=== PATIENT | female | born 1970 | race Caucasian/White ===

== ENCOUNTER → 2019-02-20 | Outpatient (CLI) | payer BC ==
--- NOTE | 2019-02-21 08:57 | US ---
EXAMINATION TYPE: US thyroid st tissue head/neck DATE OF EXAM: 02/20/2019 COMPARISON: NONE CLINICAL HISTORY: R79.89 abnormal findings of blood chemistry. Abnormal thyroid labs GLAND SIZE: Right Lobe: 5.5 x 2.1 x 2.3 cm Overall Parenchyma: heterogenous Left Lobe: 5.2 x 1.8 x 2.2 cm Overall Parenchyma: heterogeneous Isthmus Thickness: 0.3 cm NODULES RIGHT: # of nodules measured on right: 0 - multiple subcentimeter nodules seen LEFT: # of nodules measured on left: 0 - multiple subcentimeter nodules seen ISTHMUS: # of nodules measured in the isthmus: 0 Bilateral neck scanned, lymph nodes noted bilaterally, within normal limits of size. IMPRESSION: Heterogenous and mildly enlarged thyroid gland without discrete measurable focal nodule. Bilateral nonenlarged lymph nodes are incidentally seen.
== END ==
LOC: RADUSWWP 16:07
PROVIDERS: ATTEND Family Medicine
DX: E04.9 Nontoxic goiter, unspecified (principal); R79.89 Other specified abnormal findings of blood chemistry
CPT/HCPCS: 76536

== ENCOUNTER → 2020-01-01 | Outpatient (CLI) | payer BC ==
--- NOTE | 2020-01-02 06:58 | US ---
EXAMINATION TYPE: US thyroid st tissue head/neck DATE OF EXAM: 01/01/2020 COMPARISON: US 2019 CLINICAL HISTORY: E04.9 thyroid goiter, R59.9 Enlarged lymph nodes. Thyroid goiter. GLAND SIZE: Right Lobe: 5.5 x 2.5 x 1.7 cm Overall Parenchyma: heterogenous Left Lobe: 5.4 x 2.2 x 1.7 cm Overall Parenchyma: heterogeneous Isthmus Thickness: 0.23 cm NODULES RIGHT: # of nodules measured on right: 0 LEFT: # of nodules measured on left: 1 1. 0.7 X 0.7 x 0.5 cm hypoechoic heterogeneous nodule at the upper pole with well-defined margins. This nodule is wider than tall and shows peripheral vascularity. Prior size: no prior ISTHMUS: # of nodules measured in the isthmus: 1 1. 0.9 X 0.3 x 0.5 cm hypoechoic solid nodule at the mid pole with well-defined margins. This nodu le is taller than wide and shows no intranodular vascularity. Prior size: no prior Bilateral neck scanned, no evidence of lymphadenopathy. Redemonstration of heterogeneous mildly enlarged thyroid with 2 small subcentimeter nodules marked by the technologist on current study IMPRESSION: As above. No new greater than 1 cm thyroid nodules noted.
== END | disposition home or self-care (01) ==
LOC: RADUSWWP 16:48
PROVIDERS: ATTEND Family Medicine
DX: E04.1 Nontoxic single thyroid nodule (principal)
CPT/HCPCS: 76536

== ENCOUNTER 2020-10-13 18:27 | Emergency (ER) | payer BC ==
[2020-10-13 18:55] VITALS: RESP 18
[2020-10-13] MEDS ORDERED: LIDOCAINE 1% INJ 10MG/ML (20 ML MDV) SQ ONE (19:15)
[2020-10-13] MEDS ORDERED: BACITRACIN OINT 1 EACH PACKET TOPICAL ONE (19:15)
[2020-10-13] MEDS ORDERED: CEPHALEXIN 500 MG CAP PO STA (20:04)
--- NOTE | 2020-10-13 20:06 | ED ---
Skin/Abscess/FB HPI - General Chief complaint: Skin/Abscess/Foreign Body Stated complaint: R hand finger infection Time Seen by Provider: 10/13/20 19:02 Source: patient Mode of arrival: ambulatory Limitations: no limitations - History of Present Illness Initial comments: Patient is a 50-year-old female presenting to the emergency Department with complaints of a possible infection at distal aspect of her right ring finger. She states last weekend she was doing a lot of gardening and felt a poke by some kind of bluish. She did not think anything of it, noticed some redness and swelling start a few days ago. She states she actually poked the same finger with a sewing needle today and had pus come out of it. She states the redness is still there and she wanted to be seen and evaluated. She denies any fevers or chills, no nausea or vomiting. She still has full use of her right fingers. She has no further complaints at this time. - Related Data Previous Rx's Medication Instructions Recorded Cephalexin [Keflex] 500 mg PO Q6HR 5 Days #20 cap 10/13/20 Allergies Allergy/AdvReac Type Severity Reaction Status Date / Time azithromycin Allergy Swelling Verified 10/13/20 18:55 Review of Systems ROS Statement: Those systems with pertinent positive or pertinent negative responses have been documented in the HPI. ROS Other: All systems not noted in ROS Statement are negative. Past Medical History History of Any Multi-Drug Resistant Organisms: None Reported Past Surgical History: Cholecystectomy, Orthopedic Surgery Additional Past Surgical History / Comment(s): sinus. Past Psychological History: Anxiety, Depression Smoking Status: Never smoker Past Alcohol Use History: Occasional Past Drug Use History: None Reported General Exam - General Exam Comments Initial Comments: GENERAL: Patient is well-developed and well-nourished. Patient is nontoxic and in no acute distress. HEAD: Atraumatic, normocephalic. EYES: Pupils equal round and reactive to light, extraocular movements intact, sclera anicteric, conjunctiva are normal. Eyelids were unremarkable. ENT: Nares patent, oropharynx clear without exudates. Moist mucous membranes. NECK: Normal range of motion, supple without lymphadenopathy or JVD. LUNGS: Unlabored respirations. Breath sounds clear to auscultation bilaterally and equal. No wheezes rales or rhonchi. HEART: Regular rate and rhythm without murmurs, rubs or gallops. ABDOMEN: Soft, nontender, normoactive bowel sounds. : Deferred MUSCULOSKELETAL: Normal extremities with adequate strength and normal range of motion, no pitting or edema. No clubbing or cyanosis. SKIN: Warm, Dry, normal turgor, no rashes. Patient has redness and swelling at the distal end of her right ring finger, lateral to the side of the nail. Limitations: no limitations Course Vital Signs 10/13/20 18:51 Temperature 98.9 F Pulse Rate 82 Respiratory 18 Rate Blood Pressure 153/78 O2 Sat by Pulse 100 Oximetry Procedures - [place] Protocol (Time Out) Procedure Performed:: I&D Performing Provider: Ana Castano Nurse: Gisselle Kearns Timeout Date: 10/13/20 Timeout Time: 19:50 Patient Identification (2 identifiers required): Chart, Verbal, Arm Band Patient/Legal Minesweeping Officer has Confirmed: Identity, Site, Procedure, Consent Site: right ring finger Site Marked: Yes Site Verified With Patient/Guardian: Yes Final Confirmation: Procedure, Site - Incision & Drainage Consent Obtained: verbal consent, written consent Indication: Abscess Site: other (Right ring finger distal end) Size (cm): 0 (0.5) Anesthetic Used: lidocaine 1% Amount (mLs): 1 I&D Cleaning Method: Alcohol Wipe Scalpel Used: #11 I&D Drainage Obtained: Pus, Blood Patient Tolerated Procedure: well Medical Decision Making - Medical Decision Making Patient is a 50-year-old female here with a possible abscess of her right ring finger that started last week. She poked while gardening last weekend. She has some redness, swelling at the end of her right ring finger near the side of the nail. I&D was performed, small amount of pus and blood was obtained. She tolerated procedure well. Topical antibiotic and bandage was applied. We will start her on oral anti-buttocks as well. First dose given in the ER. She stable for discharge. She will continue with warm compresses to 8 further drainage. She can follow up with her doctor. She is in agreement with this plan of care and she is stable for discharge. Disposition Clinical Impression: Cellulitis of right ring finger Disposition: HOME SELF-CARE Condition: Stable Instructions (If sedation given, give patient instructions): Abscess Incision and Drainage (DC) Additional Instructions: Please return to the Emergency Department if symptoms worsen or any other concerns. Continue with warm compresses to the area to press smith helper drainage. Take antibiotics as prescribed. Keep wound clean and dry. Follow-up with your primary care physician. Prescriptions: Cephalexin [Keflex] 500 mg PO Q6HR 5 Days #20 cap Is patient prescribed a controlled substance at d/c from ED?: No Referrals: Alexandra Aceves MD [Primary Care Provider] - 1-2 days Time of Disposition: 20:06
[2020-10-13 20:35] VITALS: BP 148/80; PULSE 80; TEMP 98.7
== END 2020-10-13 20:34 | disposition home or self-care (01) ==
LOC: EC 18:27
DX: L03.011 Cellulitis of right finger (principal)
CPT/HCPCS: 99283; 10060; J2001

== ENCOUNTER → 2021-01-27 | Outpatient (CLI) | payer BC ==
--- NOTE | 2021-01-27 21:08 | US ---
EXAMINATION TYPE: US thyroid st tissue head/neck DATE OF EXAM: 01/27/2021 COMPARISON: 01/01/2020 CLINICAL HISTORY: 51-year-old female E04.1 THYROID NODULES. TECHNIQUE: Multiple sonographic images of the thyroid gland are obtained. GLAND SIZE: Right Lobe: 5.5 x 2.2 x 2.1 cm Overall Parenchyma: heterogenous Left Lobe: 5.8 x 1.9 x 2.0 cm Overall Parenchyma: heterogeneous Isthmus Thickness: 0.4 cm NODULES RIGHT: # of nodules measured on right: Multiple subcentimeter nodules noted. LEFT: # of nodules measured on left: 1. 0.6 X 0.4 x 0.6 cm, hypoechoic TR4 nodule (total 6 points), which is wider than tall, with lobul ated or irregular margins, without echogenic foci. Prior size: 0.7 X 0.7 x 0.5 cm ISTHMUS # of nodules measured: 1 1. 0.5 X 0.3 x 0.5 cm, hypoechoic TR4 nodule, which is wider than tall, with smooth margins, witho ut echogenic foci. Prior size: 0.9 X 0.3 x 0.5 cm Bilateral neck scanned, no evidence of lymphadenopathy. IMPRESSION: 1. Mild thyromegaly. 2. A solitary solid TR4 nodule on either side. The nodule on the right measures 6 mm and is relativel y unchanged. The nodule in the left is smaller at 5 mm versus 9 mm, previously.
== END | disposition home or self-care (01) ==
LOC: RADUSWWP 16:12
PROVIDERS: ATTEND Family Medicine
DX: E04.2 Nontoxic multinodular goiter (principal)
CPT/HCPCS: 76536